=== PATIENT | male | born 1945 | race Caucasian/White ===

== ENCOUNTER 2016-11-27 16:11 | Emergency (ER) | payer MEDICARE, BC ==
[2016-11-27 16:32] VITALS: TEMP 97.8
[2016-11-27] MEDS ORDERED: ONDANSETRON HCL 4 MG/2 ML SOL IV ONE (16:33)
[2016-11-27] MEDS ORDERED: KETOROLAC TROMETHAMINE 30 MG/ML SOL IV ONE (16:33)
[2016-11-27] MEDS ORDERED: KETOROLAC TROMETHAMINE 30 MG/ML SOL ONE (16:37)
[2016-11-27] MEDS ORDERED: ONDANSETRON HCL 4 MG/2 ML SOL ONE (16:37)
[2016-11-27] MEDS ORDERED: SODIUM CHLORIDE 0.9% 1000ML 1,000 ML IV SCH (16:45)
[2016-11-27 16:51] LABS: BASOPHILS % (AUTO) 1 % (0-3); EOSINOPHILS % (AUTO) 1 % (0-9); HEMATOCRIT 45 % (39-53); MEAN CORPUSCULAR HGB CONC 35.2 gm/dl (32.0-36.0); MEAN CORPUSCULAR VOLUME 86 fL (80-100); MONOCYTES % (AUTO) 6.4 % (0-12); NEUTROPHILS % (AUTO) 71.5 % (37-80)
[2016-11-27 17:03] LABS: ALBUMIN 3.7 gm/dl (3.4-5.0); CALCIUM 8.5 mg/dl (8.5-10.1); POTASSIUM 3.6 mMol/L (3.5-5.1)
[2016-11-27] MEDS ORDERED: PROCHLORPERAZINE EDISYLATE 5 MG/ML SOL IV ONE (17:16)
[2016-11-27] MEDS ORDERED: DIPHENHYDRAMINE 50 MG/ML SOL IV ONE (17:16)
[2016-11-27] MEDS ORDERED: DIPHENHYDRAMINE 50 MG/ML SOL ONE (17:18)
[2016-11-27] MEDS ORDERED: PROCHLORPERAZINE EDISYLATE 5 MG/ML SOL ONE (17:19)
[2016-11-27 17:59] VITALS: BP 136/81; PULSE 76; RESP 18; O2SAT 99
== END 2016-11-27 19:00 | disposition home or self-care (01) | DRG 103 ==
LOC: ED 16:11
DX: G43.909 Migraine, unspecified, not intractable, without status migrainosus (principal)
CPT/HCPCS: 36415; 70450; 80053; 85025; 96365; 96374; 96375; 99284; 99285; J0780; J1200; J1885; J2405